=== PATIENT | female | born 1985 | race Caucasian/White ===

== ENCOUNTER 2019-06-16 16:24 | Emergency (ER) | payer BC ==
[2019-06-16 17:03] VITALS: BP 89/56
[2019-06-16 17:51] LABS: Influenza A Molecular Negative (Negative); Influenza B Molecular Negative (Negative)
--- NOTE | 2019-06-16 17:53 | ED ---
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 and requests testing for rapid strep and flu - History of Current Complaint Chief Complaint: UCRespiratory Time Seen by Provider: 06/16/19 16:48 Hx Obtained From: Patient Onset/Duration: Sudden Onset Severity: Moderate Associated Signs And Symptoms: Positive: Negative Cough: None - Epiglottits Risk Factors Epiglottis Risk Factors: Negative - Allergies/Home Medications Allergies/Adverse Reactions: Allergies Allergy/AdvReac Type Severity Reaction Status Date / Time MS Sulfa Antibiotics Allergy Swelling Verified 06/16/19 17:04 [Sulfa Antibiotics] Of Face,Lips,& Throat Home Medications: Home Medications Acetaminophen [Tylenol Extra Strength] 500 mg PO ONCE 06/16/19 [History Confirmed 06/16/19] Amoxicillin/Clavulanate TAB* [Augmentin TAB 875*] 875 mg PO BID 7 Days #14 tab 06/16/19 [Rx] Citalopram TAB* [Celexa TAB*] 20 mg PO DAILY 06/16/19 [History Confirmed ] Ibuprofen 200 mg PO ONCE 06/16/19 [History Confirmed 06/16/19] PMH/Surg Hx/FS Hx/Imm Hx Previously Healthy: Yes - Surgical History Surgery Procedure, Year, and Place: d/c 2006 Infectious Disease History: No Infectious Disease History: Denies: Traveled Outside the [place] in Last 30 Days - Family History Known Family History: Positive: Non-Contributory - Social History Alcohol Use: Rare Substance Use Type: Reports: None Smoking Status (MU): Never Smoked Tobacco Have You Smoked in the Last Year: No Review of Systems Constitutional: Negative Positive: Fatigue Eyes: Negative Positive: Sore Throat Cardiovascular: Negative Respiratory: Negative Gastrointestinal: Negative Genitourinary: Negative Musculoskeletal: Negative Skin: Negative Neurological/Mental Status: Negative Positive: Headache Psychological: Normal All Other Systems Reviewed And Are Negative: Yes Physical Exam - Summary Physical Exam Summary: Vital Signs Reviewed: Yes Appearance: Positive: No Pain Distress Skin: Positive: Warm Head/Face: Positive: Normal Head/Face Inspection Eyes: Positive: Normal ENT: Positive: B/L pharyngeal erythema w/o exudates Dental: Negative: Cervical Lymphadenopathy Neck: Positive: Supple Respiratory/Lung Sounds: Positive: Clear to Auscultation Cardiovascular: Positive: Normal, RRR, S1, S2 Abdomen Description: Positive: Nontender Musculoskeletal: Positive: Normal Neurological: Positive: Normal Psychiatric: Positive: Normal Triage Information Reviewed: Yes Vital Signs On Initial Exam: Initial Vitals Temp Pulse Resp BP Pulse Ox 37.7 C 80 18 89/56 100 06/16/19 16:57 06/16/19 16:57 06/16/19 16:57 06/16/19 16:57 06/16/19 16:57 Diagnostics - Vital Signs Vital Signs Temp Pulse Resp BP Pulse Ox 06/16/19 16:57 37.7 C 80 18 89/56 100 - Laboratory Lab Results: Lab Results 06/16/19 Range/Units 17:28 Group A Strep Rapid Positive H (Negative) Lab Statement: Any lab studies that have been ordered have been reviewed, and results considered in the medical decision making process. EENT Course/Dx - Course Assessment/Plan: rapid strep positive - Differential Diagnoses Differential Diagnoses: Pharyngitis - Diagnoses Provider Diagnoses: Strep pharyngitis Discharge ED - Sign-Out/Discharge Documenting (check all that apply): Patient Departure All imaging exams completed and their final reports reviewed: No Studies - Discharge Plan Condition: Stable Disposition: HOME Prescriptions: Amoxicillin/Clavulanate TAB* [Augmentin TAB 875*] 875 mg PO BID 7 Days #14 tab Patient Education Materials: Strep Throat (ED) Referrals: Shereen Greene CNM [Primary Care Provider] - - Billing Disposition and Condition Condition: STABLE Disposition: Home
== END 2019-06-16 18:07 | disposition home or self-care (01) ==
LOC: UCCORT 16:24
DX: J02.0 Streptococcal pharyngitis (principal); Z88.2 Allergy status to sulfonamides
CPT/HCPCS: 87651; 99212; G0463